=== PATIENT | female | born 1985 | race Caucasian/White ===

== ENCOUNTER 2025-07-14 10:09 | Outpatient (AMB) | payer MEDICAID, SELFPAY ==
[2025-07-14 10:16] VITALS: BP 139/82; PULSE 81; RESP 18; TEMP 36.5; O2SAT 98; BMI 42.0
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
== END 2025-07-14 11:06 | disposition home or self-care (01) ==
LOC: HODSOBC 10:09
PROVIDERS: Supervising Provider Obstetrics & Gynecology; Visit Provider Obstetrics & Gynecology
DX: O09.522 Supervision of elderly multigravida, second trimester (principal); O09.42 Supervision of pregnancy with grand multiparity, second trimester; O09.892 Supervision of other high risk pregnancies, second trimester; O99.342 Other mental disorders complicating pregnancy, second trimester; F32.A Depression, unspecified; Z3A.17 17 weeks gestation of pregnancy
CPT/HCPCS: 99215; G0463

== ENCOUNTER 2025-08-13 08:42 | Outpatient (AMB) | payer MEDICAID, SELFPAY ==
[2025-08-13 08:49] VITALS: BP 134/80; PULSE 90; RESP 18; TEMP 36.8; O2SAT 97; BMI 41.3
--- NOTE | 2025-08-13 08:49 | OBCLNT_ITS ---
Vital Signs 08/13/25 08:49 Height 1.7 m Height Method Stated Weight 119.465 kg Weight Measurement Method Standing Scale BMI 41.3 BP 134/80 H Blood Pressure Source Automatic Cuff Blood Pressure Location Left Upper Arm Position Sitting Respiration 18 Pulse 90 Pulse Source Monitor Temp 98.2 F Temp Source Temporal Artery Scan Pulse Oximetry (%) 97 Oxygen Delivery Method Room Air Allergies/Home Meds Allergies & Medications Allergies No Known Allergies Allergy (Unknown, Verified 08/13/25 08:50) Medication Reconciliation aspirin 81 mg tablet 81 mg PO QDAY preeclampsia prophylaxis #60 tabs 07/14/25 [Rx Confirmed 08/13/25] sertraline 25 mg tablet 25 mg PO QDAY #30 tabs 07/14/25 [Rx Confirmed 08/13/25] sertraline 25 mg tablet (Zoloft) 25 mg PO QDAY 07/14/25 [History Confirmed 08/13/25] Immunizations Immunizations Flu Vaccine in the Last 12 Months: No Flu Vaccine Exclusion Criteria: No Exclusion Criteria Care OB Visit Log OB Flowsheet Initial Weight: Not Recorded Date -?-?-?-?-?-?-?-?-?-?-?-?- EGA Weight BP Alb Glu CTX Pres Fundal ht FHR Mov Dilation Station Effacement Hx Notes Visit Note 07/14/25 -?-?-?-?-?-?-?-?--?-?-?-?- 17w 4d 121.563 kg 139/82 absent unknown 18 138 active 0 0 07/23/25 -?-?-?-?-?-?-?-?-?-?-?-?- 18w 6d 08/13/25 -?-?-?-?-?-?-?-?-?-?-?-?- 21w 6d 119.465 kg 134/80 absent transverse 25 141 active discrepancy from size to dates MARY Calculator Estimated Delivery Date Method Current WG Current Estimate 12/18/25 LMP (Certain) 22w 0d Notes Visit Date: 08/13/25 Last Updated by: Jessica Beckwith MD Plan CBC, RPR and one hour GTT / bedside US shows a BPD of 6.28 cm and HC of 7.66 cm and c/w 25.2 weeks / Her anatomy scan is scheduled for sep 2025 / plan US at [facility] for dating now Pap/ HPV negative /GC and CT negative / Rh positive and all other labs are normal / patient has h/o depression and is undergoing a court case and is on sertraline 25 mgm po q day / needs to see a psychiatrist or behavioral Health as she feels the medication is not enough Visit Date: 07/23/25 Last Updated by: Jessica Beckwith MD called at 0905 am and left message to call back Called on [phone] Visit Date: 07/14/25 Last Updated by: Jessica Beckwith MD 39 years old at 17.5 weeks H/o depression and is on Zoloft 25 mgm po q day taking PNV Plan order labs and AFP and NIPT / refer to MFM for AMA / High risk Patient interested in signing BTL consent at next visit refill Zoloft Plan follow up in 4 weeks Pap smear done today Office Procedures OBC Clinic LOC & Office Proc's Nursing/Assessment Patient Status: Established Patient OB Clinic Nursing Assessment: Medication Reconciliation, Update PMH in EMR and Vital Signs OB Clinic Coordination of Care: Complex Care and Chronic Disease 1-5, Education Complex Pt/Fam, Consent,records obtained, informed consent, Lab and Imaging orders, Results/Orders obtained and Staff clarify orders Special Needs: Heart tones Established Patient Charge Established Patient Point Assignment: 140 Established Patient Point Charge: EP Level 4 (120-155) Assessment & Plan Diagnosis / Problem List (1) Grand multiparity: Status: Acute (2) Advanced maternal age (AMA) in : Status: Acute Plan: referred for anatomy scan / late for MSAFP due to discrepancy in dates (3) Uterine size date discrepancy: Status: Acute Qualifiers: Trimester: second trimester Qualified Code(s): O26.842 - Uterine size- date discrepancy, second trimester Plan: Plan ob US from [facility] for dating refer for genetic testing counselling / MFM (4) Depression affecting : Status: Acute Plan: refer to behavioral health Additional Plan Follow Up: 4 Weeks
== END 2025-08-13 09:29 | disposition home or self-care (01) ==
LOC: HODSOBC 08:42
PROVIDERS: Supervising Provider Obstetrics & Gynecology; Visit Provider Obstetrics & Gynecology
DX: O09.522 Supervision of elderly multigravida, second trimester (principal); O09.42 Supervision of pregnancy with grand multiparity, second trimester; O09.892 Supervision of other high risk pregnancies, second trimester; O26.842 Uterine size-date discrepancy, second trimester; O99.342 Other mental disorders complicating pregnancy, second trimester; F32.A Depression, unspecified; Z3A.21 21 weeks gestation of pregnancy
CPT/HCPCS: 99214; G0463

== ENCOUNTER → 2025-08-27 | Outpatient (CLI) | payer MEDICAID, SELFPAY ==
--- NOTE | 2025-08-27 13:59 | XR_ITS ---
Examination: Complete OB ultrasound greater than 14 weeks Date and time of exam: August 27, 2025, 1405 hours INDICATIONS: Pelvic pressure this week Findings: Viable intrauterine single fetus with single amniotic sac presentation breech Cardiac motion 145 bpm Placenta posterior grade 1 Cervical cord insertion 3 vessel seen Amniotic fluid 17.4 cm Cervix 4.2 cm Ovaries obscured by bowel gas. Composite estimated gestational age based on BPD, head circumference, abdominal circumference, femur length is 27 weeks 5 days Estimated weight 1198 g. Survey of intracranial anatomy, spinal anatomy, abdominal anatomy, four-chamber heart performed with no abnormalities identified. Impression: Viable intrauterine gestation breech presentation.
== END | disposition home or self-care (01) ==
PROVIDERS: Referring Provider Obstetrics & Gynecology; Visit Provider Obstetrics & Gynecology
DX: O32.1XX0 Maternal care for breech presentation, not applicable or unspecified (principal); Z3A.27 27 weeks gestation of pregnancy
CPT/HCPCS: 76805

== ENCOUNTER 2025-08-31 08:52 | Outpatient (AMB) | payer MEDICAID, SELFPAY ==
[2025-08-31 09:20] VITALS: BP 122/81; PULSE 101; RESP 20; TEMP 36.4; O2SAT 98; BMI 42.3
--- NOTE | 2025-08-31 09:20 | OBCLNT_ITS ---
Vital Signs 08/31/25 09:20 Height 1.7 m Height Method Stated Weight 122.243 kg Weight Measurement Method Standing Scale BMI 42.3 BP 122/81 Blood Pressure Source Automatic Cuff Blood Pressure Location Left Upper Arm Position Sitting Respiration 20 Pulse 101 H Pulse Source Monitor Temp 97.5 F Temp Source Oral Pulse Oximetry (%) 98 Oxygen Delivery Method Room Air Allergies/Home Meds Allergies & Medications Allergies No Known Allergies Allergy (Unknown, Verified 08/31/25 09:22) Medication Reconciliation aspirin 81 mg tablet 81 mg PO QDAY preeclampsia prophylaxis #60 tabs 07/14/25 [Rx Confirmed 08/31/25] sertraline 25 mg tablet 25 mg PO QDAY #30 tabs 07/14/25 [Rx Confirmed 08/31/25] Immunizations Immunizations Flu Vaccine in the Last 12 Months: No Flu Vaccine Exclusion Criteria: Refused by Patient Care OB Visit Log OB Flowsheet Initial Weight: Not Recorded Date -?-?-?-?-?-?-?-?-?-?-?-?- EGA Weight BP Alb Glu CTX Pres Fundal ht FHR Mov Dilation Station Effacement Hx Notes Visit Note 07/14/25 -?-?-?-?-?-?-?-?-?-?-?-?- 21w 3d 121.563 kg 139/82 absent unknown 18 138 active 0 0 07/23/25 -?-?-?-?-?-?-?-?-?-?-?-?- 22w 5d 08/13/25 -?-?-?-?-?-?-?-?-?-?-?-?- 25w 5d 119.465 kg 134/80 absent transverse 25 141 active discrepancy from size to dates 08/31/25 -?-?-?-?-?-?-?-?-?-?-?-?- 28w 2d 122.243 kg 122/81 absent breech 28 140 active MARY Calculator Estimated Delivery Date Method Current WG Current Estimate 11/21/25 Ultrasound #1 28w 2d Other Estimates 12/18/25 LMP (Certain) 24w 3d Notes Visit Date: 08/31/25 Last Updated by: Jessica Beckwith MD Us on 08/27/2025 at [facility] measured baby at 27.5 weeks / Her one hour GTT is 137 on 08/13/2025 / Hb is 13.7 and RPR is NR / follow up in 2 to 3 weeks and anatomy scan referred / still waiting on authorization , hopefully in sep 2025/ if not plan another US in 4 weeks Visit Date: 08/13/25 Last Updated by: Jessica Beckwith MD Plan CBC, RPR and one hour GTT / bedside US shows a BPD of 6.28 cm and HC of 7.66 cm and c/w 25.2 weeks / Her anatomy scan is scheduled for sep 2025 / plan US at [facility] for dating now Pap/ HPV negative /GC and CT negative / Rh positive and all other labs are normal / patient has h/o depression and is undergoing a court case and is on sertraline 25 mgm po q day / needs to see a psychiatrist or behavioral Health as she feels the medication is not enough Visit Date: 07/23/25 Last Updated by: Jessica Beckwith MD called at 0905 am and left message to call back Called on [phone] Visit Date: 07/14/25 Last Updated by: Jessica Beckwith MD 39 years old at 17.5 weeks H/o depression and is on Zoloft 25 mgm po q day taking PNV Plan order labs and AFP and NIPT / refer to [facility] for AMA / High risk Patient interested in signing BTL consent at next visit refill Zoloft Plan follow up in 4 weeks Pap smear done today Office Procedures OBC Clinic LOC & Office Proc's Nursing/Assessment Patient Status: Established Patient OB Clinic Nursing Assessment: Medication Reconciliation, Update PMH in EMR and Vital Signs OB Clinic Coordination of Care: AMA, Complex Care and Chronic Disease 1-5, Consent,records obtained, informed consent, Education Simp Pt/Fam, 1 Ins Authorization, Lab and Imaging orders, Results/Orders obtained and Staff clarify orders Special Needs: Heart tones Established Patient Charge Established Patient Point Assignment: 170 Established Patient Point Charge: EP Level 5 (160-above) Assessment & Plan Diagnosis / Problem List (1) Uterine size date discrepancy: Status: Acute Qualifiers: Trimester: second trimester Qualified Code(s): O26.842 - Uterine size- date discrepancy, second trimester (2) Grand multiparity: Status: Acute (3) Advanced maternal age (AMA) in : Status: Acute Additional Assessment follow up in 2 to 3 weeks / review referral for anatomy scan for size discrepancy and AMA / discuss sterilization / One hour GTT is 137
== END 2025-08-31 10:17 | disposition home or self-care (01) ==
LOC: HODSOBC 08:52
PROVIDERS: Supervising Provider Obstetrics & Gynecology; Visit Provider Obstetrics & Gynecology
DX: O09.893 Supervision of other high risk pregnancies, third trimester (principal); O26.843 Uterine size-date discrepancy, third trimester; O09.523 Supervision of elderly multigravida, third trimester; O09.43 Supervision of pregnancy with grand multiparity, third trimester; Z3A.28 28 weeks gestation of pregnancy; Z28.21 Immunization not carried out because of patient refusal
CPT/HCPCS: 99215; G0463

== ENCOUNTER 2025-09-23 09:48 | Outpatient (AMB) | payer MEDICAID, SELFPAY ==
[2025-09-23 10:02] VITALS: BP 125/87; PULSE 115; RESP 18; TEMP 36.7; O2SAT 97; BMI 43.0
--- NOTE | 2025-09-23 10:02 | OBCLNT_ITS ---
Vital Signs 09/23/25 10:02 Height 1.7 m Height Method Stated Weight 124.454 kg Weight Measurement Method Standing Scale BMI 43.0 BP 125/87 H Blood Pressure Source Automatic Cuff Blood Pressure Location Right Upper Arm Position Sitting Respiration 18 Pulse 115 H Pulse Source Monitor Temp 98.1 F Temp Source Temporal Artery Scan Pulse Oximetry (%) 97 Oxygen Delivery Method Room Air Allergies/Home Meds Allergies & Medications Allergies No Known Allergies Allergy (Unknown, Verified 09/23/25 10:05) Medication Reconciliation aspirin 81 mg tablet 81 mg PO QDAY preeclampsia prophylaxis #60 tabs 07/14/25 [Rx Confirmed 09/23/25] sertraline 25 mg tablet 25 mg PO QDAY #30 tabs 07/14/25 [Rx Confirmed 09/23/25] clotrimazole-betamethasone 1 %-0.05 % topical cream 1 applic topical BID #45 gra ms 09/23/25 [Rx] Immunizations Immunizations Flu Vaccine in the Last 12 Months: No Flu Vaccine Exclusion Criteria: Refused by Patient Care OB Visit Log OB Flowsheet Initial Weight: Not Recorded Date -?-?-?-?-?-?-?-?-?-?-?-?- EGA Weight BP Alb Glu CTX Pres Fundal ht FHR Mov Dilation Station Effacement Hx Notes Visit Note 07/14/25 -?-?-?-?-?-?-?-?-?-?-?-?- 21w 3d 121.563 kg 139/82 absent unknown 18 138 active 0 0 07/23/25 -?-?-?-?-?-?-?-?-?-?-?-?- 22w 5d 08/13/25 -?-?-?-?-?-?-?-?-?-?-?-?- 25w 5d 119.465 kg 134/80 absent transverse 25 141 active discrepancy from size to dates 08/31/25 -?-?-?-?-?-?-?-?-?-?-?-?- 28w 2d 122.243 kg 122/81 absent breech 28 140 active 09/23/25 -?-?-?-?-?-?-?-?--?-?-?-?- 31w 4d 124.454 kg 125/87 absent transverse 32 143 active / follow up for C AMA/High risk and is on Zoloft MARY Calculator Estimated Delivery Date Method Current WG Current Estimate 11/21/25 Ultrasound #1 31w 4d Other Estimates 12/18/25 LMP (Certain) 27w 5d Notes Visit Date: 09/23/25 Last Updated by: Jessica Beckwith MD 39 years old and at 31.4 weeks / c/o rash / she is seeing mental health / not sure about signing BTL consent yet / offered and refused / US done 09/04/[address] Karolina MENDEZ and Low lying placenta and has follow up scheduled for it/ growth in 57th percentile she has a rash on her back and abdomen and will call in a steroid/ antifungal topical cream / follow up in 2 weeks Visit Date: 08/31/25 Last Updated by: Jessica Beckwith MD Us on 08/27/2025 at [facility] measured baby at 27.5 weeks / Her one hour GTT is 137 on 08/13/2025 / Hb is 13.7 and RPR is NR / follow up in 2 to 3 weeks and anatomy scan referred / still waiting on authorization , hopefully in sep 2025/ if not plan another US in 4 weeks Visit Date: 08/13/25 Last Updated by: Jessica Beckwith MD Plan CBC, RPR and one hour GTT / bedside US shows a BPD of 6.28 cm and HC of 7.66 cm and c/w 25.2 weeks / Her anatomy scan is scheduled for sep 2025 / plan US at [facility] for dating now Pap/ HPV negative /GC and CT negative / Rh positive and all other labs are normal / patient has h/o depression and is undergoing a court case and is on sertraline 25 mgm po q day / needs to see a psychiatrist or behavioral Health as she feels the medication is not enough Visit Date: 07/23/25 Last Updated by: Jessica Beckwith MD called at 0905 am and left message to call back Called on [phone] Visit Date: 07/14/25 Last Updated by: Jessica Beckwith MD 39 years old at 17.5 weeks H/o depression and is on Zoloft 25 mgm po q day taking PNV Plan order labs and AFP and NIPT / refer to M for AMA / High risk Patient interested in signing BTL consent at next visit refill Zoloft Plan follow up in 4 weeks Pap smear done today Office Procedures OBC Clinic LOC & Office Proc's Nursing/Assessment Patient Status: Established Patient OB Clinic Nursing Assessment: Medication Reconciliation, Update PMH in EMR and Vital Signs OB Clinic Coordination of Care: Complex Care and Chronic Disease 1-5, Consent,records obtained, informed consent, Education Simp Pt/Fam, Lab and Imaging orders, Results/Orders obtained and Staff clarify orders Special Needs: Heart tones Established Patient Charge Established Patient Point Assignment: 135 Established Patient Point Charge: EP Level 4 (120-155) Assessment & Plan Diagnosis / Problem List (1) Grand multiparity: Status: Acute (2) Advanced maternal age (AMA) in : Status: Acute (3) Depression affecting : Status: Acute Assessment and Plan: 39 years old and at 31.4 weeks / c/o rash / she is seeing mental health / not sure about signing BTL consent yet / offered and refused / US done 09/04/[address] Karolina MENDEZ and Low lying placenta and has follow up scheduled for it/ growth in 57th percentile she has a rash on her back and abdomen and will call in a steroid/ antifungal topical cream / follow up in 2 weeks (4) High risk case management patient: Status: Acute
== END 2025-09-23 10:31 | disposition home or self-care (01) ==
LOC: HODSOBC 09:48
PROVIDERS: Supervising Provider Obstetrics & Gynecology; Visit Provider Obstetrics & Gynecology
DX: O09.523 Supervision of elderly multigravida, third trimester (principal); O09.43 Supervision of pregnancy with grand multiparity, third trimester; O09.893 Supervision of other high risk pregnancies, third trimester; O99.343 Other mental disorders complicating pregnancy, third trimester; F32.A Depression, unspecified; Z3A.31 31 weeks gestation of pregnancy; Z28.21 Immunization not carried out because of patient refusal
CPT/HCPCS: 99214; G0463